=== PATIENT | male | born 1970 | race Caucasian/White ===

== ENCOUNTER 2016-10-22 06:35 | Emergency (ER) | payer BC, OTHER ==
[~2016-10-22] VITALS: Ht 190.5 cm; Wt 84.1 kg
[~2016-10-22 06:35] MED LIST: CLON0.5T3 PO; FLUO20CA35 PO; METO50TA7 PO
[2016-10-22 06:37] VITALS: TEMP 36.7; Ht 190.5 cm; Wt 84.1 kg
[2016-10-22 06:50] VITALS: O2SAT 94
[2016-10-22] MEDS ORDERED: LISI-461 PO (06:57)
[2016-10-22] MEDS ORDERED: ASPI325T39 PO (06:57)
[2016-10-22 07:01] LABS: BASO % 0.6 %; BASO ABS # 0.04 K/uL (0-0.2); COMPLETE YES; EOS % 5.8 %; HEMATOCRIT 41.9 % (42-52); LYMPH % 36.2 %; LYMPH ABS # 2.24 K/uL (1.2-3.4); MEAN CELL VOLUME 91.7 fL (80-100); MEAN CORPUSCULAR HEMOGLOBIN 33.5 pg (25-34); MEAN CORPUSCULAR HGB CONC 36.5 g/dl (32-36); MEAN PLATELET VOLUME 9.4 fL (7.4-10.4); MONO % 9.2 %; NEUT % 47.2 %; PLATELET COUNT 271 K/uL (130-400); RED BLOOD COUNT 4.57 M/uL (4.7-6.1); WHITE BLOOD COUNT 6.19 K/uL (4.8-10.8)
--- NOTE | 2016-10-22 07:07 | DIAGNOSTIC IMAGING REPORT ---
CHEST ONE VIEW PORTABLE HISTORY: Evaluate Fever/Sepsis COMPARISON: Chest 03/30/2011. FINDINGS: The lungs are clear. Cardiac silhouette is normal in size. No pleural effusions. No pneumothorax. IMPRESSION: No acute process. Electronically signed by: Alonzo Matos M.D. 10/22/2016 7:06 AM Dictated Date/Time: 10/22/2016 7:04 AM
[2016-10-22 07:10] LABS: PARTIAL THROMBOPLASTIN RATIO 1.1; PROTHROMBIN TIME (PATIENT) 11.1 SECONDS (9.0-12.0)
[2016-10-22 07:20] LABS: ALT/SGPT 43 U/L (12-78); AST/SGOT 23 U/L (15-37); BLOOD UREA NITROGEN 12 mg/dl (7-18); BUN/CREATININE RATIO 8.9 (10-20); CALCIUM 8.8 mg/dl (8.5-10.1); CARBON DIOXIDE 22 mmol/L (21-32); CHLORIDE 105 mmol/L (98-107); GLUCOSE 106 mg/dl (70-99); POTASSIUM 3.7 mmol/L (3.5-5.1); SODIUM 137 mmol/L (136-145)
[2016-10-22 07:31] LABS: ALKALINE PHOSPHATASE 76 U/L (45-117); CKMB/CK RATIO 0.7 (0-3.0)
[2016-10-22] MEDS ORDERED: CHOL1CAP63 PO (08:23)
[2016-10-22] MEDS ORDERED: FOLI1TAB7 PO (08:23)
[2016-10-22] MEDS ORDERED: METO25TA56 PO (08:23)
[2016-10-22] MEDS ORDERED: SODIUM CHLORIDE 0.9% 1000ML 1,000 ML IV STA (08:45)
[2016-10-22] MEDS ORDERED: XRL20 PO (09:40)
--- NOTE | 2016-10-22 09:42 | EMERGENCY ROOM VISIT NOTE ---
History Report prepared by Ender: Angelique Jerome Under the Supervision of: Dr. Juan M Bhakta D.O. First contact with patient: 06:44 Chief Complaint: CARDIAC ASSESSMENT Stated Complaint: A-FIB Nursing Triage Summary: pt reports this am awoke to get drink of water and noticed heart was racing at 0345. took his metoprolol and an extra dose as told in past to do. pt reports he went to work aND TOLD TO COME TO ED FOR IRREGULAR HR. History of Present Illness The patient is a 46 year old male who presents to the Emergency Room with complaints of A. fib. The patient has a history of paroxysmal A. fib and is on aspirin. The patient reports that around 3:45 AM, he developed palpitations and was concerned about his A. fib. The last time he had this was in January. The patient states that he was instructed to take to metoprolol, which she did around 4 AM. He has not had any change in his symptoms and came in to the ED for evaluation. The patient has normal vital signs. He denies any chest pains, shortness of breath, recent illness or other complaints. Review of Systems As above otherwise negative for 10 systems Past Medical & Surgical Medical Problems: (1) Atrial fibrillation (2) Hypertension (3) Osteomyelitis Family History Cancer Diabetes mellitus Heart disease Hypertension Lung disease Social History Smoking Status: Former Smoker Smokeless Tobacco Use: Yes Alcohol Use: heavy Drug Use: none Marital Status: Occupation Status: employed Current/Historical Medications Scheduled Aspirin (Aspirin Ec), 325 MG PO QAM Choline Fenofibrate (Fenofibric Acid Dr), 135 MG PO DAILY Folic Acid (Folvite), 1 MG PO DAILY Lisinopril (Zestril), 10 MG PO DAILY Metoprolol Tartrate (Lopressor) (Lopressor), 37.5 MG PO BID Rivaroxaban (Xarelto), 1 TAB PO QD Allergies Uncoded Allergies: ADHESIVE TAPE (Allergy, Unknown, 08/13/04) Physical Exam Vital Signs Date Time Temp Pulse Resp B/P (MAP) Pulse Ox O2 Delivery O2 Flow Rate FiO2 10/22/16 10:00 96 16 110/68 93 10/22/16 08:36 93 20 98/68 95 Room Air 10/22/16 06:50 94 Room Air 10/22/16 06:49 95 Room Air 10/22/16 06:48 93 9/5/17 06:37 36.7 95 20 100/67 96 Room Air Physical Exam CONSTITUTIONAL/VITAL SIGNS: Reviewed / noted above. GENERAL: Non-toxic in appearance. INTEGUMENTARY: Warm, dry, and [place]. HEAD: Normocephalic. EYES: without scleral icterus or trauma. ENT/OROPHARYNX: clear and moist. LYMPHADENOPATHY/NECK: Is supple without lymphadenopathy or meningismus. RESPIRATORY: Lungs clear and equal. CARDIOVASCULAR: Regular rate and irregular rhythm. GI/ABDOMEN: Soft and nontender. No organomegaly or pulsatile mass. No rebound or guarding. Normal bowel sounds. EXTREMITIES: Warm and well perfused. BACK: No CVA tenderness. NEUROLOGICAL: Intact without focal deficits. PSYCHIATRIC: normal affect. MUSCULOSKELETAL: Normally developed with good muscle tone. TRIAGE NURSING DOCUMENTATION REVIEWED. Medical Decision & Procedures ER Provider Diagnostic Interpretation: X ray results and stated below per my interpretation and radiology interpretation. CHEST ONE VIEW PORTABLE HISTORY: Evaluate Fever/Sepsis COMPARISON: Chest 03/30/2011. FINDINGS: The lungs are clear. Cardiac silhouette is normal in size. No pleural effusions. No pneumothorax. IMPRESSION: No acute process. Electronically signed by: Alonzo Matos M.D. 10/22/2016 7:06 AM Dictated Date/Time: 10/22/2016 7:04 AM Laboratory Results 10/22/16 06:45 Red Blood Count 4.57, Mean Corpuscular Volume 91.7, Mean Corpuscular Hemoglobin 33.5, Mean Corpuscular Hemoglobin Concent 36.5, Mean Platelet Volume 9.4, Neutrophils (%) (Auto) 47.2, Lymphocytes (%) (Auto) 36.2, Monocytes (%) (Auto) 9.2, Eosinophils (%) (Auto) 5.8, Basophils (%) (Auto) 0.6, Neutrophils # (Auto) 2.92, Lymphocytes # (Auto) 2.24, Monocytes # (Auto) 0.57, Eosinophils # (Auto) 0.36, Basophils # (Auto) 0.04 10/22/16 06:45 Test 10/22/16 06:45 White Blood Count 6.19 K/uL (4.8-10.8) Red Blood Count 4.57 M/uL (4.7-6.1) Hemoglobin 15.3 g/dL (14.0-18.0) Hematocrit 41.9 % (42-52) Mean Corpuscular Volume 91.7 fL (80-100) Mean Corpuscular Hemoglobin 33.5 pg (25-34) Mean Corpuscular Hemoglobin Concent 36.5 g/dl (32-36) Platelet Count 271 K/uL (130-400) Mean Platelet Volume 9.4 fL (7.4-10.4) Neutrophils (%) (Auto) 47.2 % Lymphocytes (%) (Auto) 36.2 % Monocytes (%) (Auto) 9.2 % Eosinophils (%) (Auto) 5.8 % Basophils (%) (Auto) 0.6 % Neutrophils # (Auto) 2.92 K/uL (1.4-6.5) Lymphocytes # (Auto) 2.24 K/uL (1.2-3.4) Monocytes # (Auto) 0.57 K/uL (0.11-0.59) Eosinophils # (Auto) 0.36 K/uL (0-0.5) Basophils # (Auto) 0.04 K/uL (0-0.2) RDW Standard Deviation 41.1 fL (36.4-46.3) RDW Coefficient of Variation 12.2 % (11.5-14.5) Immature Granulocyte % (Auto) 1.0 % Immature Granulocyte # (Auto) 0.06 K/uL (0.00-0.02) Prothrombin Time 11.1 SECONDS (9.0-12.0) Prothromb Time International Ratio 1.0 (0.9-1.1) Activated Partial Thromboplast Time 28.7 SECONDS (21.0-31.0) Partial Thromboplastin Ratio 1.1 Anion Gap 10.0 mmol/L (3-11) Est Creatinine Clear Calc Drug Dose 85.4 ml/min Estimated GFR () 76.4 Estimated GFR (Non- 65.9 BUN/Creatinine Ratio 8.9 (10-20) Calcium Level 8.8 mg/dl (8.5-10.1) Total Bilirubin 0.4 mg/dl (0.2-1) Direct Bilirubin 0.1 mg/dl (0-0.2) Aspartate Amino Transf (AST/SGOT) 23 U/L (15-37) Alanine Aminotransferase (ALT/SGPT) 43 U/L (12-78) Alkaline Phosphatase 76 U/L (45-117) Total Creatine Kinase 226 U/L (39-308) Creatine Kinase MB 1.6 ng/ml (0.5-3.6) Creatine Kinase MB Ratio 0.7 (0-3.0) Troponin I < 0.015 ng/ml (0-0.045) Total Protein 8.1 gm/dl (6.4-8.2) Albumin 3.6 gm/dl (3.4-5.0) Lipase 316 U/L (73-393) Thyroid Stimulating Hormone (TSH) 2.810 uIu/ml (0.300-4.500) Medications Administered Medications (Trade) Dose Ordered Sig/Miguel Route Start Time Stop Time Status Last Admin Dose Admin Sodium Chloride 1,000 ml @ 999 mls/hr Q1H1M STAT IV 10/22/16 08:45 10/22/16 09:45 DC 10/22/16 08:45 999 MLS/HR ECG Indication: palpitations Rate (beats per minute): 100 Rhythm: atrial fibrillation Findings: no acute ischemic change, no ectopy ED Course 0644: Previous medical records were reviewed. The patient was evaluated in room B12B. A complete history and physical examination was performed. 0812: I discussed the patients case with Dr. Donaldson, Cardiology. He states that he will come down to see the patient. 0845: I spoke to Dr. Donaldson, Cardiology at this time. He states that the patient can follow up as an outpatient. The patient understands and agrees with the treatment plan. Medical Decision the differential that was considered includes acute myocardial infarction, acute coronary syndrome, myocarditis, pericarditis, pericardial effusions / tamponade, esophageal perforation, thoracic aortic dissection, pulmonary embolism, pneumonia, pneumothorax, pancreatitis, shingles, acute cholecystitis, perforated abdominal viscus. The patient is a 46 year old male who presents to the Emergency Room with complaints of A. fib. The patient has a history of paroxysmal A. fib and is on aspirin. The patient reports that around 3:45 AM, he developed palpitations and was concerned about his A. fib. The last time he had this was in January. The patient states that he was instructed to take to metoprolol, which she did around 4 AM. He has not had any change in his symptoms and came in to the ED for evaluation. The patient has normal vital signs. He denies any chest pains, shortness of breath, recent illness or other complaints. Twelve-lead EKG reveals A. fib with a controlled ventricular response in the high 90s to low 100s. The chest x-ray did not show acute disease. Blood work including CBC and chemistry panel was normal. Cardiac enzymes are negative. TSH is normal. The patient was told the results. I spoke with Dr. Donaldson about the patient. He saw the patient in the ED. We feel comfortable with outpatient follow-up. The patient was given normal saline IV. The patient will be started on Xaralto. This has been prescribed. Anticipate spontaneous conversion to sinus rhythm as has occurred every time in the past. Dr. Donaldson also talked to the patient about alcohol consumption. The patient reported to him that he drinks 10-[address] Donaldson would like to have the patient on Zaroxolyn until he follows up with his filling technician in the chance that the patient does not spontaneously convert and he needs to be cardioverted. This has been prescribed. Medication Reconcilliation Current Medication List: was personally reviewed by me Blood Pressure Screening Patient's blood pressure: Normal blood pressure Blood pressure disposition: Did not require urgent referral Consults Time Called: 729 Consulting Physician: Dr. Donaldson, Cardiology Returned Call: 0812 I discussed the patients case with Dr. Donaldson, Cardiology. He states that he will come down to see the patient. Impression Primary Impression: Atrial fibrillation Scribe Attestation The scribe's documentation has been prepared under my direction and personally reviewed by me in its entirety. I confirm that the note above accurately reflects all work, treatment, procedures, and medical decision making performed by me. Departure Information Dispostion Home / Self-Care Prescriptions Rivaroxaban (Xarelto) 20 Mg Tab 1 TAB PO QD, #30 TABS Prov: Juan M Bhakta D.O. 10/22/16 Referrals No Doctor, Assigned (PCP) Forms IMPORTANT VISIT INFORMATION Patient Instructions My [facility] Additional Instructions Your EKG shows that you are in atrial fibrillation. Follow-up with your filling technician tomorrow for recheck. Take Xaralto (a blood thinner) if you are not able to see your filling technician tomorrow. Take this daily until seen by your filling technician. Only continue to take if your filling technician recommends taking it. Return or go to the nearest ER for worsening.
--- NOTE | 2016-10-22 09:47 | CARDIOLOGY CONSULTATION ---
DATE OF CONSULTATION: 10/22/2016 DATE OF CONSULTATION: 10/22/2016 TIME: 8:54 a.m. CONSULTING PHYSICIAN: Dr. Bhakta. REASON FOR CONSULTATION: Atrial fibrillation. HISTORY OF PRESENT ILLNESS: Mr. Craig is a pleasant 46-year-old gentleman with a history significant for paroxysmal atrial fibrillation, hypertension, and dyslipidemia who presented to [facility] this morning on 10/22/2016 with palpitations. He follows with cardiology in the [place] area, Dr. Villasenor. He describes having episodes November 2014, May 2015, January 2016 for which he was evaluated in the Emergency Department hospital setting. It sounds as though he has spontaneously converted in the past and reports receiving IV metoprolol. He is not on anticoagulation but his concern today is stroke which is why he came to the hospital. He denies any stroke or stroke-like symptoms. At 3:45 a.m. he awakened from sleep to go to the kitchen to get a drink of water. After drinking some water he developed palpitations and felt as though his heart was irregular. He took 75 mg of metoprolol which is double his usual dose and tried to go to work. He continued to worry and have anxiety from the atrial fibrillation which prompted him to come to the Emergency Department. He still feels palpitations at rest lying in the hospital bed when his heart rates ranging from 90-105 beats per minute, but overall the palpitations are much better while at rest. He reports consuming large amounts of alcohol, ranging from 10 to 20 beers a day. He drank approximately 15 beers yesterday from 3:00 p.m. to 11:00 p.m. when he went to sleep. He has not had anything to eat this morning. His last meal was last evening. He denies stroke, stroke-like symptoms, fevers, chills, abdominal pain, nausea, vomiting, diarrhea, melena, hematochezia, hematuria, or other bleeding. He denies chest pain, shortness of breath, or edema. REVIEW OF SYSTEMS: As above and review of systems otherwise negative. PAST MEDICAL HISTORY: 1. Paroxysmal atrial fibrillation. 2. Hypertension. 3. Dyslipidemia. HOME MEDICATIONS: Include: 1. Metoprolol 37.5 mg twice daily. 2. Lisinopril 10 mg daily. 3. Aspirin 325 mg daily. 4. Multivitamin. 5. Fenofibrate, but he is unsure of the dose. EMERGENCY DEPARTMENT MEDICATIONS: He has not received any medications in the Emergency Department and his heart rate has mostly been reasonably controlled. ALLERGIES: No known drug allergies. SOCIAL HISTORY: He has smoked intermittently after quitting for some time and restarting recently. He does not smoke on a daily basis; however. He consumes large amounts of alcohol, ranging from 10 to 20 beers per day. His last drink was last night. He is . He has 2 grown children. He lives alone. 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 He follows with cardiology in the [place] area. FAMILY HISTORY: No known premature CAD. PHYSICAL EXAMINATION: VITAL SIGNS: Temperature 36.7 degrees, heart rate 93 beats per minute, respiration rate 20, blood pressure 98/68 mmHg, oxygen saturation 95% on room air. GENERAL: No acute distress. He is alert and oriented. HEAD, EYES, EARS, NOSE, AND THROAT: Anicteric sclerae. NECK: No appreciable JVD. No bruits. Normal carotid upstrokes bilaterally. CARDIAC EXAMINATION: PMI nondisplaced. There was no ventricular heave. Irregularly irregular, normal S1, S2. There were no audible murmurs, rubs or gallops. LUNGS: Clear to auscultation bilaterally without wheezes, rales or rhonchi. ABDOMEN: Soft, nontender, nondistended, normoactive bowel sounds, no bruits noted. EXTREMITIES: No cyanosis or edema. No palpable cords. 2+ radial pulses bilaterally. PSYCHIATRIC: Affect appears appropriate. ECG personally reviewed. ECG 10/22/2016 at 6:45 a.m. atrial fibrillation at 99 beats per minute. LABORATORY DATA: White blood cell count 6.19, hemoglobin 15.3, platelets 271. Sodium 137, potassium 3.7, BUN 12, creatinine 1.3, glucose 106, AST 23, ALT 43. Troponin undetectable. Albumin 3.6. TSH 2.81. INR 1. Chest x-ray reported as no acute process as per radiology. He reports having an echocardiogram with his primary business development assistant and states that he was told that the echo was normal. ASSESSMENT AND PLAN: 1. Paroxysmal atrial fibrillation: He is symptomatic even at rest and it appears as though this onset was at approximately 3:45 or 3:50 a.m. this morning. He is reasonably rate controlled at rest with only being mildly tachycardic at times. Recommend 1 liter of normal saline. If he remains slightly tachycardic, would give metoprolol 5 mg IV x1 if his blood pressure allows. He is slightly hypotensive intermittently currently. His CHADS2-VASc score is 1 based on hypertension. Recommend anticoagulation. Can use one of the newer agents. This was discussed with Dr. Bhakta of the Emergency Department who can arrange this through his vocational case manager based upon cost. Recommend Eliquis 5 mg twice daily or Xarelto [address], if he remains in atrial fibrillation longer than 48 hours he is anticoagulated. This can be further managed by his primary business development assistant. We discussed cardioversion; however, he declined at this time which is not unreasonable given the fact that he tends to spontaneously convert within 48 hours based on prior hospitalizations. If he does not convert within 48 hours, would then consider electrical cardioversion. He was asked to follow up with his primary business development assistant tomorrow morning for reassessment. His alcohol consumption may be contributing to his atrial fibrillation burden. 2. Alcohol abuse: Recommended that he stop consuming alcohol. This is potentially playing a role in his atrial fibrillation and this was discussed with him in detail as well as other long-term possible consequences of alcohol abuse. 3. Tobacco abuse: Recommend that he stop smoking. 4. Disposition: He prefers to be discharged and his heart rate is reasonably controlled. If it remains reasonably controlled after normal saline and potentially IV metoprolol, he can be discharged home on his home dose of metoprolol with close followup with his business development assistant tomorrow so that if he does not spontaneously convert electrical cardioversion could be done while on anticoagulation therapy. He is willing to call his business development assistant today for close followup tomorrow morning. Plan of care has been discussed with Dr. Bhakta of the Emergency Department. Thank you for allowing me to participate in the care of Mr. Craig. CHAPIN
[2016-10-22 10:00] VITALS: BP 110/68; PULSE 96; O2SAT 93
== END 2016-10-22 10:01 | disposition home or self-care (01) ==
LOC: C.EDB 06:36
DX: I48.91 Unspecified atrial fibrillation (principal); I10 Essential (primary) hypertension; M86.9 Osteomyelitis, unspecified; Z87.891 Personal history of nicotine dependence; Z79.82 Long term (current) use of aspirin; Z79.899 Other long term (current) drug therapy; Z91.09 Other allergy status, other than to drugs and biological substances; Z83.3 Family history of diabetes mellitus; Z80.9 Family history of malignant neoplasm, unspecified; Z82.49 Family history of ischemic heart disease and other diseases of the circulatory system